=== PATIENT | female | born 1990 | race American Indian/Alaskan Native ===

== ENCOUNTER 2017-09-25 10:48 | Emergency (ER) | payer OTHER ==
[2017-09-25 11:01] VITALS: BMI 21.9
[2017-09-25 11:03] VITALS: BP 97/61; PULSE 71; RESP 17; TEMP 98.9; O2SAT 99
--- NOTE | 2017-09-25 11:50 | C.PDOC ---
History Of Present Illness 26 year old female, with history of wisdom tooth impaction with past abscesses to the area, presents to the ED for evaluation of pain and swelling to her right lower jaw which began last night. Patient states she has taken antibiotics in the past for the abscess but has not undergone removal of the impacted wisdom tooth. Patient denies fever, chills. Time Seen by Provider: 09/25/17 11:14 Chief Complaint (Nursing): Dental Pain History Per: Patient History/Exam Limitations: no limitations Onset/Duration Of Symptoms: Hrs Current Symptoms Are (Timing): Still Present Quality: Positive for: "Pain" Additional History Per: Patient Past Medical History Reviewed: Historical Data, Nursing Documentation, Vital Signs Vital Signs: Last Vital Signs Temp 98.9 F 09/25/17 11:01 Pulse 71 09/25/17 11:01 Resp 17 09/25/17 11:01 BP 97/61 L 09/25/17 11:01 Pulse Ox 99 09/25/17 14:17 - Medical History PMH: Kidney Stones Denies: Depression Surgical History: No Surg Hx - [facility] Procedures APPLICATION OF SPLINT (05/08/06) INJECT/INFUSE NEC (02/02/14) Family History: States: Unknown Family Hx - Social History Hx Tobacco Use: Yes Hx Alcohol Use: Yes Hx Substance Use: No - Immunization History Hx Tetanus Toxoid Vaccination: No Hx Influenza Vaccination: No Hx Pneumococcal Vaccination: No Review Of Systems Constitutional: Negative for: Fever, Chills ENT: Positive for: Mouth Pain (right lower jaw) Physical Exam - Physical Exam Appears: Non-toxic, No Acute Distress Skin: Normal Color, Warm, Dry Head: Swelling (right-sided, facial ) Oral Mucosa: Moist Teeth: Caries (teeth #31 and #32), Tender To Palpation (to teeth #31 and #32) Gingiva: Swelling (surrounding teeth #31 and #32), Other (angulated eruption of molar. no warmth ) Neck: Supple Lymphatic: Adenopathy (inside mouth ) Extremity: Normal ROM Gait: Steady ED Course And Treatment O2 Sat by Pulse Oximetry: 99 (on RA ) Pulse Ox Interpretation: Normal Medical Decision Making Medical Decision Making: Progress: Motrin PO and Penicillin PO administered. pt with impacted wisdom tooth with caries, molar with caries and swelling to right side face with ? abscess palpated adjacent. pt to be discharged with oen vk and motrin with dental f/u tamica. pt given info about dental resources. Disposition Counseled Patient/Family Regarding: Diagnosis, Need For Followup, Rx Given - Disposition Referrals: [facility] [Outside] Disposition: HOME/ ROUTINE Disposition Time: 11:49 Condition: STABLE Additional Instructions: Please take antibiotics and pain medicine as prescribed. Follow up with dentist tamica. Call your dentist, or any of the numbers provided. Return to ER for any worsening symptoms. Prescriptions: Ibuprofen [Motrin] 600 mg PO TID #30 tab Penicillin VK [Penicillin VK Tab] 500 mg PO QID #56 tab Instructions: Dental Abscess (ED) Forms: [facility] [employer] [facility] ([facility]), General Discharge Instructions - Clinical Impression Clinical Impression: Dental abscess, Dental caries - PA / [employer] / Resident Statement MD/DO has reviewed & agrees with the documentation as recorded. - Scribe Statement The provider has reviewed the documentation as recorded by the Scribe (Mary Barrow) All medical record entries made by the Scribe were at my direction and personally dictated by me. I have reviewed the chart and agree that the record accurately reflects my personal performance of the history, physical exam, medical decision making, and the department course for this patient. I have also personally directed, reviewed, and agree with the discharge instructions and disposition.
== END 2017-09-25 11:59 | disposition home or self-care (01) ==
LOC: C.ER 10:48
DX: K04.7 Periapical abscess without sinus (principal); K02.9 Dental caries, unspecified